=== PATIENT | female | born 1995 | race Caucasian/White ===

== ENCOUNTER 2023-11-10 15:22 | Emergency (ER) | payer OTHER ==
--- NOTE | 2023-11-10 15:49 | ERPHSYRPT ---
- History of Present Illness Time Seen by Provider: 11/10/23 15:49 Source: patient Exam Limitations: no limitations Physician History: This is a 28-year-old white female patient who is 39 weeks and was taking off the needle from a third grade student injectable insulin pen and accidentally stuck herself to hand second digit. This occurred at approximately 11:45 AM. It also appears that she was taking off of the When it occurred. It did not penetrate the child before penetrated her skin. Patient states that she will have the blood drawn but she does not want any medications. She will follow-up with her political researcher to see if she requires any further monitoring or management with medications. Timing/Duration: today Quality: other (No significant pain at all) Location: hands (Left hand second digit) Possible Causes: other (Accidental needlestick) Associated Symptoms: denies symptoms Allergies/Adverse Reactions: No Known Drug Allergies Allergy (Verified 11/10/23 16:00) Home Medications: Hammond-3 Fatty Acids/Fish Oil [Fish Oil 1,000 mg Capsule] 1,000 mg PO C LARIFY 11/10/23 [History] Pnv 119/Iron Fum/Folic Acid [ 19 Tablet] 1 tab PO DAILY 11/10/23 [History] Travel Risk - International Travel Have you traveled outside of the country in past 3 weeks: No - Emerging Infectious Disease Are you exhibiting symptoms associated with any current EIDs: No - Review of Systems Constitutional: No Symptoms Eyes: No Symptoms Ears, Nose, & Throat: No Symptoms Respiratory: No Symptoms Cardiac: No Symptoms Abdominal/Gastrointestinal: No Symptoms Genitourinary Symptoms: No Symptoms Musculoskeletal: Injury (Accidental needlestick left hand second digit) Skin: No Symptoms Neurological: No Symptoms Psychological: No Symptoms Endocrine: No Symptoms Hematologic/Lymphatic: No Symptoms Immunological/Allergic: No Symptoms All Other Systems: Reviewed and Negative - Past Medical History Pertinent Past Medical History: Yes - Past Surgical History Past Surgical History: Yes - Nursing Vital Signs Nursing Vital Signs: Initial Vital Signs Temperature 97.7 F 11/10/23 15:30 Pulse Rate 98 H 11/10/23 15:30 Respiratory Rate 17 11/10/23 15:30 Blood Pressure 132/93 11/10/23 15:30 O2 Sat by Pulse Oximetry 97 11/10/23 15:30 Pain Scale Pain Intensity 0 - Physical Exam General Appearance: no apparent distress, alert, other Eye Exam: PERRL/EOMI (), eyes nml inspection Ears, Nose, Throat Exam: normal ENT inspection, moist mucous membranes Neck Exam: normal inspection, non-tender, supple, full range of motion Respiratory Exam: No chest tenderness, No respiratory distress Gastrointestinal/Abdomen Exam: No tenderness Pelvic Exam: not done Rectal Exam: not done Back Exam: normal inspection, normal range of motion, No CVA tenderness, No vertebral tenderness Extremity Exam: normal range of motion, pelvis stable, tenderness (Very mild pain in the area of the faint needlestick site left hand second digit) Neurologic Exam: alert, oriented x 3, cooperative, folder seamer automatic II-XII nml as tested, normal mood/affect, nml cerebellar function, nml station & gait, sensation nml Skin Exam: other (Needlestick site left hand second digit. See above) Lymphatic Exam: No adenopathy SpO2 Interpretation: normal O2 Delivery: Room Air - Course Nursing assessment & vital signs reviewed: Yes Ordered Tests: Active Orders 24 hr Category Date Time Status Wound Care STAT Care 11/10/23 15:51 Active - Progress Progress: unchanged Progress Note: 11/10/23 16:17 My medical decision making and the assignment of low complexity to this patient's medical issue is based on review of the patient's past medical history, review of his medication list, review the patient drug allergy list, history of present illness and physical findings on examination. The workup in this patient includes needlestick assessment protocol. Patient will have her l ab drawn. However, she declines any type of medication. She will follow-up with her political researcher as she is 39 weeks and does not want any new medications in her system. In addition, the patient involved as a third grade elementary student. Counseled pt/family regarding: diagnosis, need for follow-up Medical Desision Making - Diagnostic Testing Diagnostic test were ordered, analyzed, and reviewed by me: Yes - Risk of complications Minimal Risk: Minimal risk of morbidity - Departure Departure Disposition: Home Clinical Impression: Needlestick injury accident Condition: Stable Critical Care Time: No Referrals: ROSS CARRILLO MD [Primary Care Provider] - Follow up/PCP as directed Additional Instructions: Keep the needlestick site clean. Do not apply ointments or creams to the site. Follow-up with your political researcher tomorrow to determine the need for any further management.
[2023-11-10 16:07] VITALS: TEMP 97.7; O2SAT 97
[2023-11-10 16:23] VITALS: BP 125/95; PULSE 90; RESP 18
[2023-11-12 18:09] LABS: HBsAg Screen Negative (Negative); HIV Screen 4th Generation wRfx Non Reactive (Non Reactive); Hep B Surface Ab, Quant <3.1 mIU/mL (Immunity>9.9); Hep C Virus Ab Non Reactive (Non Reactive)
== END 2023-11-10 16:32 | disposition home or self-care (01) ==
LOC: ED 15:22
DX: S61.231A Puncture wound without foreign body of left index finger without damage to nail, initial encounter (principal); W46.0XXA Contact with hypodermic needle, initial encounter; Y92.211 Elementary school as the place of occurrence of the external cause; Y99.0 Civilian activity done for income or pay; Z33.1 Pregnant state, incidental
CPT/HCPCS: 36415; 86317; 87340; 87389; 99282; G0472; 86803